=== PATIENT | male | born 1940 | race Caucasian/White ===

== ENCOUNTER 2019-11-27 12:15 | Emergency (ER) | payer OTHER ==
[~2019-11-27] VITALS: Ht 177.8 cm; Wt 108.9 kg
[2019-11-27] MEDS ORDERED: MERIBIN5 MG PO (14:06)
[2019-11-27] MEDS ORDERED: Vitamin C100 M1 PO (14:06)
[2019-11-27] MEDS ORDERED: AZO CRANBERRY1 EAC1 (14:07)
[2019-11-27] MEDS ORDERED: FISH OIL 500 M1 EAC1 PO (14:07)
[2019-11-27] MEDS ORDERED: Flonase 0.05% N16 GM (14:07)
[2019-11-27] MEDS ORDERED: HYDRA50 PO (14:08)
[2019-11-27] MEDS ORDERED: FOLI1 PO (14:08)
[2019-11-27] MEDS ORDERED: SYNTHROID150 MC2 PO (14:08)
[2019-11-27] MEDS ORDERED: PRAZ5 PO (14:09)
[2019-11-27] MEDS ORDERED: MELA3 PO (14:09)
[2019-11-27] MEDS ORDERED: PROP10 PO (14:09)
[2019-11-27] MEDS ORDERED: SERT100 PO (14:10)
[2019-11-27] MEDS ORDERED: TRAZ100 PO (14:10)
[2019-11-27] MEDS ORDERED: TOPI50 PO (14:10)
[2019-11-27] MEDS ORDERED: Flomax0.4 MG PO (14:10)
[2019-11-27] MEDS ORDERED: Roxicodone5 MG PO (14:33)
== END 2019-11-27 15:08 | disposition home or self-care (01) ==
LOC: ER 12:15
DX: T84.216A Breakdown (mechanical) of internal fixation device of vertebrae, initial encounter (principal); E03.9 Hypothyroidism, unspecified; F43.10 Post-traumatic stress disorder, unspecified; Z87.891 Personal history of nicotine dependence
CPT/HCPCS: 72100; J1170; J1885; J2405

== ENCOUNTER 2021-12-21 21:43 | Inpatient (IN) | payer OTHER ==
[~2021-12-21] VITALS: Ht 180.3 cm; Wt 108.9 kg
[~2021-12-21 21:43] MED LIST: AZO CRANBERRY1 EAC1; FISH OIL 500 M1 EAC1 PO; FOLI1 PO; Flomax0.4 MG PO; Flonase 0.05% N16 GM; HYDRA50 PO; MELA3 PO; MERIBIN5 MG PO; PRAZ5 PO; PROP10 PO; Roxicodone5 MG PO; SERT100 PO; SYNTHROID150 MC2 PO; TOPI50 PO; TRAZ100 PO; Vitamin C100 M1 PO
[2021-12-21 22:05] LABS: BASOPHILS ABSOLUTE AUTO 0.03 K/mm3 (0.00-0.23); BASOPHILS PERCENT AUTO 0 % (0-2); EOSINOPHILS ABSOLUTE AUTO 0.09 K/mm3 (0.00-0.68); EOSINOPHILS PERCENT AUTO 1 % (0-6); Hematocrit 41.6 % (37.0-53.0); Hemoglobin 13.9 g/dL (13.5-17.5); IMMATURE GRAN ABSOLUTE AUTO 0.05 K/mm3 (0.00-0.10); IMMATURE GRAN PERCENT AUTO 1 % (0-1); LYMPHOCYTES ABSOLUTE AUTO 1.17 K/mm3 (0.84-5.20); LYMPHOCYTES PERCENT AUTO 12 % (21-46); MONOCYTES ABSOLUTE AUTO 0.71 K/mm3 (0.16-1.47); MONOCYTES PERCENT AUTO 7 % (4-13); Mean Corpuscular HGB 31.4 pg (26.0-34.0); Mean Corpuscular HGB Conc 33.4 g/dL (31.5-36.5); Mean Corpuscular Volume 94 fL (80-100); Mean Platelet Volume 9.9 fL (9.1-12.4); NEUTROPHILS ABSOLUTE AUTO 7.75 K/mm3 (1.96-9.15); NEUTROPHILS PERCENT AUTO 79 % (41-73); Platelet Count 200 K/mm3 (150-400); RDW Coefficient Variation 12.9 % (11.7-14.2); RDW Standard Deviation 44.6 fL (35.1-46.3); Red Blood Cell Count 4.43 M/mm3 (4.30-5.90)
[2021-12-21 22:34] LABS: Alanine Aminotransfer (ALT/SGP 22 U/L (12-78); Albumin, Blood 3.6 g/dL (3.4-5.0); Albumin/Globulin Ratio 1.2 (0.8-1.8); Alk Phos 87 U/L (50-136); Anion Gap 3 mmol/L (6-16); Aspartate Aminotrans (AST/SGOT 17 U/L (12-37); Bilirubin, Total 0.3 mg/dL (0.1-1.0); Blood Urea Nitrogen 19 mg/dL (8-24); CO2, Blood 31 mmol/L (21-32); Calcium, Blood 8.4 mg/dL (8.5-10.1); Chloride, Blood 107 mmol/L (98-108); Creatinine, Blood 1.12 mg/dL (0.60-1.20); Glomerular Filtration Rate >60 (60-); Glucose, Blood 98 mg/dL (70-99); Potassium, Blood 3.9 mmol/L (3.5-5.5); Sodium, Blood 141 mmol/L (136-145); Total Protein, Blood 6.6 g/dL (6.4-8.2)
[2021-12-21 22:48] LABS: Influenza A, PCR NEGATIVE (NEGATIVE); Influenza B, PCR NEGATIVE (NEGATIVE); Resp Syncytial Virus, PCR NEGATIVE (NEGATIVE); SARS-Cov-2 (COVID-19) PCR, MMC NEGATIVE (NEGATIVE)
[2021-12-22 00:12] LABS: Source, Urine Foley catheter
[2021-12-22 00:15] LABS: Bilirubin, Urine Neg (Neg); Blood, Urine Neg (Neg); Glucose Qualitative, Urine Neg (Neg); Ketones, Urine Neg (Neg); Leukocyte Esterase, Urine Neg (Neg); Nitrite, Urine Neg (Neg); Protein, Urine Neg (Neg); Urobilinogen, Urine NORM (Normal); pH, Urine 6.5 (5.0-8.0)
[2021-12-22 00:38] LABS: Appearance, Urine Clear (Clear); Color, Urine Yellow (P-Yellow)
--- NOTE | 2021-12-22 00:59 | NUR ---
ADMIT: ~0045 PT ARRIVED TO FLOOR, ROOM [id number], VSS, NO PAIN, 2L NC, LUNGS COARSE, WILL CONTINUE TO MONITOR LINDSAY MIJARES
--- NOTE | 2021-12-22 04:52 | NUR ---
End of Shift Summary Overnight went well, 2L NC in place, attempted room air but desats to 85%, CPAP on for half the night, no pain, IV lasix appeares effective---pt states he can breathe easier, VSS, will continue to monitor LINDSAY Nichols
[2021-12-22 05:56] LABS: BASOPHILS ABSOLUTE AUTO 0.02 K/mm3 (0.00-0.23); BASOPHILS PERCENT AUTO 0 % (0-2); EOSINOPHILS PERCENT AUTO 0 % (0-6); Hematocrit 42.6 % (37.0-53.0); IMMATURE GRAN ABSOLUTE AUTO 0.04 K/mm3 (0.00-0.10); IMMATURE GRAN PERCENT AUTO 0 % (0-1); LYMPHOCYTES ABSOLUTE AUTO 0.47 K/mm3 (0.84-5.20); LYMPHOCYTES PERCENT AUTO 3 % (21-46); MONOCYTES ABSOLUTE AUTO 0.22 K/mm3 (0.16-1.47); MONOCYTES PERCENT AUTO 2 % (4-13); Mean Corpuscular HGB Conc 32.9 g/dL (31.5-36.5); Mean Corpuscular Volume 94 fL (80-100); Mean Platelet Volume 9.9 fL (9.1-12.4); NEUTROPHILS ABSOLUTE AUTO 12.98 K/mm3 (1.96-9.15); NEUTROPHILS PERCENT AUTO 95 % (41-73); Platelet Count 192 K/mm3 (150-400); RDW Coefficient Variation 12.9 % (11.7-14.2); RDW Standard Deviation 44.5 fL (35.1-46.3); Red Blood Cell Count 4.52 M/mm3 (4.30-5.90); White Blood Cell Count 13.73 K/mm3 (4.00-11.30)
[2021-12-22 06:22] LABS: Alanine Aminotransfer (ALT/SGP 19 U/L (12-78); Albumin, Blood 3.5 g/dL (3.4-5.0); Alk Phos 86 U/L (50-136); Anion Gap 6 mmol/L (6-16); Aspartate Aminotrans (AST/SGOT 16 U/L (12-37); Bilirubin, Total 0.5 mg/dL (0.1-1.0); Blood Urea Nitrogen 17 mg/dL (8-24); Bun/Creatinine Ratio 15.7 (12.0-20.0); CO2, Blood 30 mmol/L (21-32); CPK Creatine Kinase 203 U/L (39-308); Calcium, Blood 8.8 mg/dL (8.5-10.1); Chloride, Blood 103 mmol/L (98-108); Creatinine, Blood 1.08 mg/dL (0.60-1.20); Free Thyroxine 1.08 ng/dL (0.70-1.60); Globulin, Blood 3.4 g/dL (2.2-4.0); Glomerular Filtration Rate >60 (60-); Glucose, Blood 156 mg/dL (70-99); Potassium, Blood 3.6 mmol/L (3.5-5.5); Sodium, Blood 139 mmol/L (136-145); Thyroid Stimulating Hormone 0.375 uIU/mL (0.360-4.800); Total Protein, Blood 6.9 g/dL (6.4-8.2)
[2021-12-22 14:12] LABS: CPK Creatine Kinase 281 U/L (39-308)
--- NOTE | 2021-12-22 16:39 | NUR ---
SHIFT SUMMARY NO ACUTE EVENTS THIS SHIFT, VSS. PT ALERT AND ORIENTED, ABLE TO AMBULATE INDEPENDENTLY AROUND THE ROOM AND TO THE BATHROOM WITH A STEADY GAIT. PT DENIES CHEST PAIN, ENDORSES SHORTNESS OF BREATH AT TIMES. PT INITIALLY ON 2 L VIA NASAL CANNULA, TITRATED DOWN TO ROOM AIR THIS SHIFT. AT TIMES PATIENT'S O2 SATURATION WILL DIP TO 88-89%, WITH 1 L O2 APPLIED RETURNS TO >90% QUICKLY. PT HAS NON-PRODUCTIVE COUGH, PROVIDED INCENTIVE SPIROMETER AND EDUCATION WITH TEACH BACK.
[2021-12-22] MEDS ORDERED: LEVSOD150 PO (18:39)
[2021-12-22] MEDS ORDERED: TRAZ100 PO (18:39)
[2021-12-22] MEDS ORDERED: TAMS.4ER PO (18:39)
[2021-12-22] MEDS ORDERED: SERT100 PO (18:41)
[2021-12-22] MEDS ORDERED: PROP10 PO (18:41)
[2021-12-22] MEDS ORDERED: PRAZ5 PO (18:41)
[2021-12-22 22:36] LABS: Creatine Kinase MB 2.3 ng/mL (0.0-3.6); Creatine Kinase MB Index 0.7 (0.0-4.0)
--- NOTE | 2021-12-23 04:20 | NUR ---
End of shift summary: Overall stable night, VSS, CPAP on throughout night, 1-2L NC at times but I do not suspect O2 needs at discharge, only desats while asleep. no pain, states he is feeling much improved, lungs much less coarse since yesterday, will continue to monitor. LINDSAY Nichols
[2021-12-23] MEDS ORDERED: PRED20 PO (11:41)
[2021-12-23] MEDS ORDERED: GUAI600T33 PO (11:45)
--- NOTE | 2021-12-23 16:20 | NUR ---
DISCHARGE PATIENT ALERT AND ORIENTED THIS SHIFT, VSS, ABLE TO AMBULATE INDEPENDENTLY IN ROOM WITH STEADY GAIT. PT AGREEABLE TO DISCHARGE. DISCHARGE INFORMATION PROVIDED TO PATIENT AND PATIENT'S SPOUSE AT BEDSIDE, FOLLOW UP PLANS AND MEDICATION INFORMATION PROVIDED WITH QUESTIONS ANSWERED TO SATISFACTION. HOME O2 EVAL COMPLETED PRIOR TO DC, HOME O2 DELIVERED AND PATIENT BROUGHT TO PERSONAL VEHICLE BY STAFF VIA WHEELCHAIR.
== END 2021-12-23 16:27 | disposition home or self-care (01) | DRG 193 ==
LOC: ER 21:43 → PCU 12-22 00:26
PROVIDERS: Student in an Organized Health Care Education/Training Program; ADMIT Internal Medicine
PROC: 5A09357 Assistance with Respiratory Ventilation, Less than 24 Consecutive Hours, Continuous Positive Airway Pressure (ICD-10-PCS; principal; 2021-12-22)
PROC: 3E03329 Introduction of Other Anti-infective into Peripheral Vein, Percutaneous Approach (ICD-10-PCS; 2021-12-22)
DX: J12.9 Viral pneumonia, unspecified (principal); J96.01 Acute respiratory failure with hypoxia; E03.9 Hypothyroidism, unspecified; Z88.5 Allergy status to narcotic agent; Z85.51 Personal history of malignant neoplasm of bladder; F43.10 Post-traumatic stress disorder, unspecified; Z20.822 Contact with and (suspected) exposure to COVID-19; Z85.528 Personal history of other malignant neoplasm of kidney; Z90.49 Acquired absence of other specified parts of digestive tract; Z90.5 Acquired absence of kidney; I16.0 Hypertensive urgency; I11.0 Hypertensive heart disease with heart failure; Z79.899 Other long term (current) drug therapy; Z87.891 Personal history of nicotine dependence; I50.9 Heart failure, unspecified
CPT/HCPCS: 0241U; 36415; 71045; 80053; 81003; 82550; 82553; 83880; 84145; 84439; 84443; 84484; 85025; 93005; 93010; 93306; 94660; 94761; 94762; 96374; 96375; 99285-25; A9270; J0456; J0696; J1650; J1940; J2930; J7050

== ENCOUNTER 2023-06-23 20:32 | Emergency (ER) | payer OTHER ==
[~2023-06-23] VITALS: Ht 177.8 cm; Wt 111.1 kg
[~2023-06-23 20:32] MED LIST changes: +GUAI600T33 PO; +LEVSOD150 PO; +PRED20 PO; +TAMS.4ER PO
[2023-06-24 00:05] LABS: Source, Urine Voided
[2023-06-24 00:13] LABS: Bilirubin, Urine Neg (Neg); Blood, Urine Neg (Neg); Glucose Qualitative, Urine Neg (Neg); Ketones, Urine Neg (Neg); Leukocyte Esterase, Urine Neg (Neg); Nitrite, Urine Neg (Neg); Protein, Urine 1+ (Neg); Urobilinogen, Urine NORM (Normal)
[2023-06-24 00:28] LABS: BASOPHILS ABSOLUTE AUTO 0.02 K/mm3 (0.00-0.23); BASOPHILS PERCENT AUTO 0 % (0-2); EOSINOPHILS PERCENT AUTO 0 % (0-6); Hematocrit 39.9 % (37.0-53.0); Hemoglobin 13.3 g/dL (13.5-17.5); IMMATURE GRAN ABSOLUTE AUTO 0.03 K/mm3 (0.00-0.10); IMMATURE GRAN PERCENT AUTO 0 % (0-1); LYMPHOCYTES ABSOLUTE AUTO 0.49 K/mm3 (0.84-5.20); LYMPHOCYTES PERCENT AUTO 5 % (21-46); MONOCYTES ABSOLUTE AUTO 0.68 K/mm3 (0.16-1.47); MONOCYTES PERCENT AUTO 7 % (4-13); Mean Corpuscular HGB Conc 33.3 g/dL (31.5-36.5); Mean Corpuscular Volume 93 fL (80-100); Mean Platelet Volume 9.5 fL (9.1-12.4); NEUTROPHILS ABSOLUTE AUTO 7.96 K/mm3 (1.96-9.15); NEUTROPHILS PERCENT AUTO 87 % (41-73); Platelet Count 208 K/mm3 (150-400); RDW Coefficient Variation 12.9 % (11.7-14.2); RDW Standard Deviation 43.8 fL (35.1-46.3); Red Blood Cell Count 4.29 M/mm3 (4.30-5.90); White Blood Cell Count 9.18 K/mm3 (4.00-11.30)
[2023-06-24 00:31] LABS: Appearance, Urine Clear (Clear); Color, Urine Yellow (P-Yellow)
[2023-06-24 01:22] LABS: Albumin, Blood 3.7 g/dL (3.4-5.0); Albumin/Globulin Ratio 1.2 (0.8-1.8); Bilirubin, Total 0.6 mg/dL (0.1-1.0); Bun/Creatinine Ratio 11.1 (12.0-20.0); Calcium, Blood 8.7 mg/dL (8.5-10.1); Creatinine, Blood 1.17 mg/dL (0.60-1.20); Total Protein, Blood 6.7 g/dL (6.4-8.2)
[2023-06-24 10:55] LABS: Chloride (POC) 102 mmol/L (98-108); Glucose (ISTAT POC) 95 mg/dL (70-99); Hemoglobin (POC) 13.9 g/dL (13.5-17.5); Potassium (POC) 3.8 mmol/L (3.5-5.5); Sodium (POC) 137 mmol/L (135-148); Total CO2 (POC) 24 mmol/L (21-32)
[2023-06-24 13:43] LABS: Potassium, Blood 4.1 mmol/L (3.5-5.5)
[2023-06-24 18:07] LABS: Source, Urine Foley catheter
[2023-06-24 18:10] LABS: Appearance, Urine Clear (Clear); Bilirubin, Urine Neg (Neg); Blood, Urine Neg (Neg); Color, Urine Yellow (P-Yellow); Glucose Qualitative, Urine Neg (Neg); Ketones, Urine 2+ (Neg); Leukocyte Esterase, Urine Neg (Neg); Nitrite, Urine Neg (Neg); Protein, Urine 1+ (Neg); Urobilinogen, Urine NORM (Normal)
[2023-06-25 08:28] VITALS: BP 164/84
== END 2023-06-25 14:51 | disposition home or self-care (01) ==
LOC: ER 20:32
PROVIDERS: Emergency Medicine
DX: U07.1 COVID-19 (principal); M54.9 Dorsalgia, unspecified; G89.29 Other chronic pain; E03.9 Hypothyroidism, unspecified; I50.9 Heart failure, unspecified; Z87.891 Personal history of nicotine dependence; Z88.5 Allergy status to narcotic agent; Z79.899 Other long term (current) drug therapy
CPT/HCPCS: 36415; 51702; 71045; 80047; 80053; 85014; 85025; 96374; 99285-25; A9270; J3010

== ENCOUNTER 2023-08-25 14:51 | Emergency (ER) | payer MEDICARE ==
[~2023-08-25] VITALS: Ht 177.8 cm; Wt 108.9 kg
[2023-08-25 15:39] LABS: BASOPHILS ABSOLUTE AUTO 0.03 K/mm3 (0.00-0.23); BASOPHILS PERCENT AUTO 1 % (0-2); EOSINOPHILS ABSOLUTE AUTO 0.11 K/mm3 (0.00-0.68); EOSINOPHILS PERCENT AUTO 2 % (0-6); Hematocrit 41.1 % (37.0-53.0); Hemoglobin 13.7 g/dL (13.5-17.5); IMMATURE GRAN ABSOLUTE AUTO 0.03 K/mm3 (0.00-0.10); IMMATURE GRAN PERCENT AUTO 1 % (0-1); LYMPHOCYTES ABSOLUTE AUTO 1.58 K/mm3 (0.84-5.20); LYMPHOCYTES PERCENT AUTO 29 % (21-46); MONOCYTES ABSOLUTE AUTO 0.51 K/mm3 (0.16-1.47); MONOCYTES PERCENT AUTO 10 % (4-13); Mean Corpuscular HGB 30.4 pg (26.0-34.0); Mean Corpuscular HGB Conc 33.3 g/dL (31.5-36.5); Mean Corpuscular Volume 91 fL (80-100); Mean Platelet Volume 9.9 fL (9.1-12.4); NEUTROPHILS ABSOLUTE AUTO 3.13 K/mm3 (1.96-9.15); NEUTROPHILS PERCENT AUTO 58 % (41-73); Platelet Count 214 K/mm3 (150-400); RDW Coefficient Variation 13.2 % (11.7-14.2); RDW Standard Deviation 44.3 fL (35.1-46.3); White Blood Cell Count 5.39 K/mm3 (4.00-11.30)
[2023-08-25 16:21] LABS: Albumin, Blood 3.6 g/dL (3.4-5.0); Albumin/Globulin Ratio 1.1 (0.8-1.8); Bilirubin, Total 0.5 mg/dL (0.1-1.0); Bun/Creatinine Ratio 11.4 (12.0-20.0); Calcium, Blood 8.7 mg/dL (8.5-10.1); Creatinine, Blood 1.14 mg/dL (0.60-1.20); Globulin, Blood 3.3 g/dL (2.2-4.0); Potassium, Blood 4.7 mmol/L (3.5-5.5); Total Protein, Blood 6.9 g/dL (6.4-8.2)
[2023-08-25 18:19] LABS: Source, Urine Clean Catch
[2023-08-25 18:37] LABS: Appearance, Urine Clear (Clear); Bilirubin, Urine Neg (Neg); Blood, Urine Neg (Neg); Color, Urine Yellow (P-Yellow); Glucose Qualitative, Urine Neg (Neg); Ketones, Urine Neg (Neg); Leukocyte Esterase, Urine Neg (Neg); Nitrite, Urine Neg (Neg); Protein, Urine Neg (Neg); Specific Gravity, Urine 1.015 (1.003-1.022); Urobilinogen, Urine NORM (Normal); pH, Urine 6.5 (5.0-8.0)
[2023-08-26 14:54] VITALS: BP 151/78
== END 2023-08-26 14:57 | disposition home or self-care (01) ==
LOC: ER 14:51
PROVIDERS: Student in an Organized Health Care Education/Training Program
DX: R25.1 Tremor, unspecified (principal); R29.6 Repeated falls; Z79.899 Other long term (current) drug therapy; Z87.891 Personal history of nicotine dependence
CPT/HCPCS: 70450; 80053; 81003; 83735; 85025; 93005; 93010; 97163; 97530; 99285-25; A9270